=== PATIENT | female | born 1965 ===

== ENCOUNTER 2021-01-30 06:00 | Day surgery (SDC) | payer OTHER ==
[~2021-01-30 06:00] MED LIST: SINGULAIR10 MG PO
[2021-01-30] MEDS ORDERED: NAPR500T14 PO (10:08)
[2021-01-30] MEDS ORDERED: MORGIDOX100 MG PO (10:08)
== END 2021-01-30 15:35 | disposition home or self-care (01) ==
LOC: CIR.AMB 06:00
PROVIDERS: ATTEND Obstetrics & Gynecology
DX: D25.0 Submucous leiomyoma of uterus (principal); N84.0 Polyp of corpus uteri; Z20.822 Contact with and (suspected) exposure to COVID-19